=== PATIENT | female | born 1960 | race Caucasian/White ===

== ENCOUNTER 2016-07-20 16:35 | Emergency (ER) ==
--- NOTE | 2016-07-20 18:18 | PROVIDER DOCUMENTATION ---
HPI-Musculoskeletal Pain/Inj - GENERAL Chief Complaint: Chest Pain Stated Complaint: UPPER ARM/BACK PAIN Time Seen by Provider: 07/20/16 18:12 Source: patient - HX OF PRESENT ILLNESS-MUSKULOSKELTAL Nature of Presenting Problem: 56 y/o WF presents to the EDwith shoulder pain that began this am. Pt says it hurts to cover remover her shoulder and when she takes a deep breath. Quality of Pain: reports: aching, dull Severity in ED: moderate, severe Onset/Duration: this morning Timing: still present Modifying Factors: improves with: nothing Any recent injury?: No Locality of Occurance: Home Similar Symptoms Previously?: Yes Recently seen or treated by another doctor?: No Review of Systems - Adult - REVIEW OF SYSTEMS - ADULT Constitutional: denies: chills, fever Eyes: reports: no symptoms reported Ears, Nose, Mouth & Throat: reports: no symptoms reported Cardiovascular: denies: chest pain, edema Respiratory: denies: cough, shortness of breath, wheezing Gastrointestinal: reports: no symptoms reported Genitourinary: reports: no symptoms reported Musculoskeletal: reports: joint pain (right shoulder). denies: back pain, neck pain Integumentary: reports: no symptoms reported Neurological: reports: no symptoms reported Psychiatric: reports: no symptoms reported Endocrine: reports: no symptoms reported Hematologic/Lymphatic: reports: no symptoms reported Allergic/Immunologic: reports: no symptoms reported All Other Systems: Reviewed and Negative Past History - Adult - PAST MEDICAL HISTORY-ADULT Review of Records: reports: Old Records Reviewed, Nursing Assessment Review, Medications Reviewed Major Childhood Illnesses: reports: denies history Cardiovascular: reports: denies history, HTN Respiratory: reports: asthma Gastrointestinal: reports: GERD Genitourinary: reports: denies history Musculoskeletal: reports: denies history Neurological: reports: headaches/migraines Endocrine/Immune: reports: Diabetes - PRIOR SURGERIES/PROCEDURES Surgical/Procedure History: reports: cholecystectomy, hysterectomy - IMMUNIZATION STATUS Childhood Immunizations: See Nurse Assessment Flu Vaccine: See Nurse Assessment - FAMILY HISTORY Family History: reviewed, not pertinent Physical Exam-Injury Related - Physical Exam-Injury Related Initial Vital Signs Reviewed: Yes General Appearance: appears well, alert, no apparent distress Eyes: PERRL/EOMI, pink conjunctivae, fundi clear, no AV nicking Head, Ears, Nose, Mouth & Throat: moist mucous membranes, normal ENT inspection , TMs normal, pharynx normal Neck: non-tender, full range of motion, supple, normal inspection Respiratory: lungs clear, normal breath sounds, no pleuratic chest pain, no respiratory distress, no accessory muscle use Cardiovascular: normal peripheral pulses, regular rate, rhythm Abdominal Exam: normal bowel sounds, non tender, soft Back Exam: normal inspection, no CVA tenderness, no vertebral tenderness Extremity: normal range of motion, normal inspection, tenderness (with rom and touch). negative: erythema, inflammation Integumentary: normal color, warm/dry Neurologic: grossly normal, no motor/sensory deficits Psych/Mental Status: normal mood/affect, normal thought content, normal thought process, oriented x 3 Progress - EKG 1 Time of EKG reading by physician:: 17:11 EKG Read and Signed by:: Marcos Yan EKG Interpretation (*Must complete 3 of following elements*): Normal Rate: 77 Rhythm: NSR [place]: normal QRS: normal MA Interval: normal - XRAY 1 XRAY Study: Chest Impression: Normal Comparison with other Films: no changes XRAY Interpretation: NAD Departure - Departure Time of Disposition Order: 18:27 DIAGNOSIS: Shoulder pain, right Qualifiers: Chronicity: acute Qualified Code(s): M25.511 - Pain in right shoulder Disposition: HOME 01 Certified Medical Emergency: Emergent Condition: Stable Additional Instructions: ED Follow Up Instructions: You have been treated by a care provider in the Emergency Department. These instructions are being provided to you so you can have an understanding of how to care for yourself upon discharge. Upon discharge from the Emergency Department, you are responsible for making arrangements for follow-up care by a physician of your choice. Take all prescribed medications as directed. Return to the Emergency Department immediately for any new or worsening symptoms. You may call the Physician Referral phone number at [phone] to obtain a list of Physicians who are taking new patients. Prescriptions: Naproxen 500 mg PO BID #30 tablet Attestation - Scribe Verification/Attestation Scribe:: Leonid Saleem Acting as Scribe for:: Marcos Yan Scribe documention review:: This chart was documented by a scribe and accurately reflects the service the provider performed and the decisions made by the provider.
[2016-07-20 18:33] VITALS: BP 112/69
--- NOTE | 2016-07-20 19:29 | Diag Imaging Result Document ---
PROCEDURE NAME: CHEST-2 VIEWS - 07/20/2016 FRONTAL AND LATERAL CHEST, 2 VIEWS: FINDINGS: Compared to 05/14/2016. The lungs are well expanded. The heart is not enlarged. The vessels are not distended. No pleural effusions. Minimal atelectasis versus a tiny infiltrate along the left heart border. Mild scoliosis. IMPRESSION: Minimal increased markings in the left base believed to be atelectasis.
--- NOTE | 2016-07-21 06:14 | EKG Report ---
Test Performed on : 07/20/2016 5:11:44 PM Test Reason : CP Blood Pressure : / mmHG Vent. Rate : 077 BPM Atrial Rate : 077 BPM P-R Int : 136 ms QRS Dur : 084 ms QT Int : 422 ms P-R-T Axes : 069 069 053 degrees QTc Int : 477 ms Normal sinus rhythm. Normal ECG When compared with ECG of 05-SEP-2015 19:09, No significant change was found Unconfirmed Result
== END 2016-07-20 18:52 | disposition home or self-care (01) ==
LOC: P.ED 16:35
DX: M25.511 Pain in right shoulder (principal); R07.9 Chest pain, unspecified; M54.9 Dorsalgia, unspecified; I10 Essential (primary) hypertension; E11.9 Type 2 diabetes mellitus without complications
CPT/HCPCS: 71020; 93005; 99283

== ENCOUNTER 2016-09-16 09:42 | Emergency (ER) ==
[2016-09-16] MEDS ORDERED: DECADRON IM ONE (12:44)
--- NOTE | 2016-09-16 12:49 | PROVIDER DOCUMENTATION ---
HPI-Respiratory General - General Chief Complaint: Return/Recheck Stated Complaint: RIB PX/COLD SX Time Seen by Provider: 09/16/16 12:30 Source: patient Allergies/Adverse Reactions: Patient Allergies Allergy/AdvReac Type Severity Reaction Status Date / Time amoxicillin Allergy ITCHING Verified 08/13/16 03:47 aspirin Allergy NAUSEA/VOMI Verified 08/13/16 03:47 TING Latex, Natural Rubber Allergy Unknown Verified 08/13/16 03:47 codeine AdvReac NAUSEA/VOMI Verified 08/13/16 03:47 TING Home Medications: Home Medication List Medication Instructions Recorded Confirmed Last Taken Type Lisinopril 10 mg PO DAILY 07/20/16 08/13/16 Unknown History Levofloxacin [Levaquin] 500 mg PO DAILY #10 tablet 08/13/16 Unknown Rx Meloxicam [Mobic] 7.5 mg PO DAILY #10 tablet 08/13/16 Unknown Rx Tramadol [Ultram] 50 mg PO Q8HR #20 tablet 08/13/16 Unknown Rx Azithromycin [Zithromax Z-Dylan] 250 mg PO DIRECTED #1 pkg 09/16/16 Unknown Rx Brompheniramine/Pseudoephed/Dm 10 ml PO Q4H PRN #180 ml 09/16/16 Unknown Rx [Bromfed Dm Cough Syrup] - History of Present Illness-Resp Nature of Presenting Problem: PATIENT C/O COUGH X2 WEEKS. RECENTLY SEEN HERE AND RECEIVED RX FOR LEVAQUIN, NORCO, ULTRAM, MOBIC. REPORTS PAIN TO RIGHT RIBS WITH COUGHING AND TENDERNESS IN RIGHT RIBS TO TOUCH. ALSO STATES FACIAL PRESSURE X2 WEEKS. Quality of Pain: reports: aching Onset/Duration: reports: other (2 WEEKS AGO) Timing: reports: still present Cough Quality/Degree: reports: moderate, dry cough. denies: sputum Current Respiratory Medication Therapy: Initiated none Modifying Factors: improves with: coughing, deep breath Associated Symptoms: reports: facial pain, sinus pain Similar Symptoms Previously?: Yes Recently seen or treated by another doctor?: Yes Review of Systems - Adult - REVIEW OF SYSTEMS - ADULT Constitutional: reports: no symptoms reported Eyes: reports: no symptoms reported Ears, Nose, Mouth & Throat: reports: see HPI Cardiovascular: reports: no symptoms reported Respiratory: reports: see HPI Gastrointestinal: reports: no symptoms reported Genitourinary: reports: no symptoms reported Musculoskeletal: reports: see HPI Integumentary: reports: no symptoms reported Neurological: reports: no symptoms reported Psychiatric: reports: no symptoms reported Endocrine: reports: no symptoms reported Hematologic/Lymphatic: reports: no symptoms reported Allergic/Immunologic: reports: no symptoms reported Past History - Adult - PAST MEDICAL HISTORY-ADULT Review of Records: reports: Nursing Assessment Review, Medications Reviewed, Social history reviewed & non-contributory. Major Childhood Illnesses: reports: denies history Cardiovascular: reports: denies history, HTN Respiratory: reports: asthma Gastrointestinal: reports: GERD Genitourinary: reports: denies history Musculoskeletal: reports: denies history Neurological: reports: headaches/migraines Endocrine/Immune: reports: Diabetes - PRIOR SURGERIES/PROCEDURES Surgical/Procedure History: reports: cholecystectomy, hysterectomy - IMMUNIZATION STATUS Childhood Immunizations: See Nurse Assessment Flu Vaccine: See Nurse Assessment - FAMILY HISTORY Family History: reviewed, not pertinent - SOCIAL HISTORY Smoking: cigarettes Provider spent 3-5 mins advising pt. on dangers of tobacco.: Discussed manners to quit use, and f/u contacts for add'l counseling. Physical Exam-General - PHYSICAL EXAM-ADULT Initial Vital Signs Reviewed: Yes - CONSTITUTIONAL General Appearance: appears well, alert, no apparent distress - EYES Eyes: PERRL/EOMI - HEAD, EARS, NOSE, MOUTH & THROAT HENMT: TMs normal, pharynx normal, maxillary tenderness (BILATERAL) - NECK Neck: non-tender, full range of motion - RESPIRATORY Respiratory: lungs clear, other (RIGHT LATERAL RIBS TENDER TO PALPATION) - CARDIOVASCULAR Cardiovascular: regular rate, rhythm - GASTROINTESTINAL (ABDOMEN) Abdominal Exam: normal bowel sounds, non tender, soft - LYMPHATIC Lymphatic: no adenopathy - MUSCULOSKELETAL Extremity: normal range of motion, normal gait - SKIN Integumentary: normal color, normal turgor, warm/dry - NEUROLOGIC Neurologic: grossly normal - PSYCHIATRIC Psych/Mental Status: normal mood/affect, normal thought content, normal thought process, oriented x 3 Progress - PLAN OF CARE/RESULTS Progress/Plan/Lab Results: Orders Category Date Time Status Dexamethasone [Decadron] Med 09/16/16 12:44 Discontinued 10 mg IM NOW ONE Vital Signs - 24 hr 09/16/16 09/16/16 09:57 12:58 Temperature 98 F 98 F Pulse Rate 74 79 Respiratory 18 18 Rate Blood Pressure 167/81 142/77 O2 Sat by Pulse 99 99 Oximetry Departure - Departure Time of Disposition Order: 12:44 DIAGNOSIS: Costochondritis, Cough Sinusitis, acute Qualifiers: Sinusitis location: maxillary Recurrence: not specified as recurrent Qualified Code(s): J01.00 - Acute maxillary sinusitis, unspecified Disposition: HOME 01 Certified Medical Emergency: Emergent Condition: Good Additional Instructions: IBUPROFEN OVER THE COUNTER PER PACKAGE DIRECTIONS FOR PAIN. Prescriptions: Brompheniramine/Pseudoephed/Dm [Bromfed Dm Cough Syrup] 10 ml PO Q4H PRN #180 ml PRN Reason: Cough Azithromycin [Zithromax Z-Dylan] 250 mg PO DIRECTED #1 pkg Referrals: None,PCP [Primary Care Provider] - Vincent Woods MD [STAFF PHYSICIAN] - Call for Appoint. -1 week Instructions: Costochondritis, [id number], Cough, Adult, [id number], Sinusitis, [id number], Brompheniramine; Pseudoephedrine oral suspension, Azithromycin tablets Attestation - Physician/ OXANA Attestation Patient care was provided by Advanced Practice Provider:: Yes Advanced Practice Provider:: Elmer Luke Advanced Practice Provider documentation review:: The Mid-level provider documentation, treatment plan and medical decision making was reviewed by the physician who agrees with all treatment and medical decision making by the P.
[2016-09-16 12:59] VITALS: BP 142/77
== END 2016-09-16 12:59 | disposition home or self-care (01) ==
LOC: P.ED 09:42
DX: J01.00 Acute maxillary sinusitis, unspecified (principal); M94.0 Chondrocostal junction syndrome [Tietze]; R05 Cough; R07.81 Pleurodynia; R51 Headache; J34.89 Other specified disorders of nose and nasal sinuses; I10 Essential (primary) hypertension; E11.9 Type 2 diabetes mellitus without complications; F17.210 Nicotine dependence, cigarettes, uncomplicated; Z79.899 Other long term (current) drug therapy; Z71.6 Tobacco abuse counseling